=== PATIENT | male | born 1995 | race Caucasian/White ===

== ENCOUNTER 2022-12-06 11:41 | Emergency (ER) | payer OTHER ==
[2022-12-06 11:51] VITALS: BMI 29.8
[2022-12-06] MEDS ORDERED: MAG HYDROX/AL HYDROX/SIMETH 30 ML UNIT-DOSE CUP PO ONE (12:42)
[2022-12-06] MEDS ORDERED: ONDANSETRON 4 MG TABLET PO ONE (12:42)
[2022-12-06] MEDS ORDERED: ACETAMINOPHEN 500 MG TABLET (FP) PO ONE (12:42)
[2022-12-06] MEDS ORDERED: FAMOTIDINE 20 MG TABLET PO ONE (12:43)
[2022-12-06] MEDS ORDERED: FAMOTIDINE 20 MG TABLET ONE (12:47)
[2022-12-06] MEDS ORDERED: MAG HYDROX/AL HYDROX/SIMETH 30 ML UNIT-DOSE CUP ONE (12:48)
[2022-12-06] MEDS ORDERED: ACETAMINOPHEN 325 MG TABLET (FP) ONE (12:48)
[2022-12-06] MEDS ORDERED: ONDANSETRON *ODT* 4 MG TABLET ONE (12:48)
[2022-12-06 13:19] LABS: BASO % 0.2 % (0-2.0); HEMATOCRIT 43.2 % (35.4-49); HEMOGLOBIN 14.9 GM/dL (11.7-16.9); LYMPH % 27.4 % (8-40); MCH 29.6 pg (25.7-33.7); MCHC 34.5 g/dl (32.0-35.9); MEAN CELL VOLUME 85.8 fl (80-96); MEAN PLT VOLUME 9.2 fl (7.5-11.1); MONO % 11.9 % (3.8-10.2); NEUT % 59.5 % (42.8-82.8); PLATELET COUNT 233 10^3/uL (134-434); RBC 5.04 M/mm3 (4.00-5.60); RDW 13.4 % (11.9-15.9); WHITE BLOOD COUNT 8.3 K/mm3 (4.0-10.0)
[2022-12-06 13:53] LABS: POTASSIUM 3.7 mmol/L (3.5-5.1)
[2022-12-06 13:55] LABS: CALCIUM 8.6 mg/dL (8.5-10.1)
[2022-12-06 13:56] LABS: ALBUMIN 3.9 g/dl (3.4-5.0); BLOOD UREA NITROGEN 5.9 mg/dL (7-18)
[2022-12-06 13:59] LABS: CREATININE 0.7 mg/dL (0.55-1.3)
[2022-12-06 14:00] LABS: BILIRUBIN,TOTAL 0.3 mg/dL (0.2-1); TOT PROT 7.5 g/dl (6.4-8.2)
[2022-12-06 15:39] VITALS: BP 110/63; PULSE 61; RESP 19; TEMP 98.1
== END 2022-12-06 17:03 | disposition home or self-care (01) ==
LOC: JER 11:41
DX: R07.9 Chest pain, unspecified (principal); R10.9 Unspecified abdominal pain; R63.0 Anorexia; Z20.822 Contact with and (suspected) exposure to COVID-19
CPT/HCPCS: 0241U-QW; 36415; 71046-TC-FY; 80053; 84484; 85025; 93005; 93010; 99285-25

== ENCOUNTER 2023-03-06 12:16 | Emergency (ER) | payer OTHER ==
[2023-03-06 12:40] VITALS: BMI 30.7
[2023-03-06 14:34] LABS: BASO % 1.1 % (0-2.0); EOS % 0.8 % (0-4.5); HEMATOCRIT 46.5 % (35.4-49); HEMOGLOBIN 15.9 GM/dL (11.7-16.9); LYMPH % 34.3 % (8-40); MCH 29.6 pg (25.7-33.7); MCHC 34.1 g/dl (32.0-35.9); MEAN CELL VOLUME 86.8 fl (80-96); MEAN PLT VOLUME 9.1 fl (7.5-11.1); MONO % 7.2 % (3.8-10.2); NEUT % 56.6 % (42.8-82.8); PLATELET COUNT 257 10^3/uL (134-434); RBC 5.37 M/mm3 (4.00-5.60); WHITE BLOOD COUNT 7.8 K/mm3 (4.0-10.0)
[2023-03-06 15:13] LABS: ALBUMIN 4.2 g/dl (3.4-5.0); BILIRUBIN,TOTAL 0.6 mg/dL (0.2-1); BLOOD UREA NITROGEN 8.5 mg/dL (7-18); CALCIUM 9.3 mg/dL (8.5-10.1); CREATININE 0.8 mg/dL (0.55-1.3); POTASSIUM 4.2 mmol/L (3.5-5.1); TOT PROT 7.8 g/dl (6.4-8.2)
[2023-03-06 17:07] VITALS: BP 144/94; PULSE 67; RESP 18; TEMP 98.9
== END 2023-03-06 17:07 | disposition home or self-care (01) ==
LOC: JER 12:16
DX: R10.13 Epigastric pain (principal); R13.10 Dysphagia, unspecified; R63.8 Other symptoms and signs concerning food and fluid intake; R11.2 Nausea with vomiting, unspecified; K44.9 Diaphragmatic hernia without obstruction or gangrene; K21.9 Gastro-esophageal reflux disease without esophagitis
CPT/HCPCS: 36415; 74177-TC; 80053; 83690; 85025; 99285-25; Q9967